=== PATIENT | female | born 1975 | race Caucasian/White ===

== ENCOUNTER → 2020-12-06 | Outpatient (CLI) | payer OTHER ==
--- NOTE | 2020-12-06 15:56 | CARD ---
MR#: [id number] Date of Study: 12/06/2020 Ordering Physician: KORY ESTRADA, Referring Physician: KORY ESTRADA, Tech: Zoey Godoy APPROVED REPORT EXAM: Two-dimensional and M-mode echocardiogram with Doppler and color Doppler. Other Information Quality : GoodHR: 96bpm INDICATION CVA/TIA Echo Enhancing Agent Indication: Rule Out Septal Defect Agent/Amount Used: Agitated Saline 10mL 2D DIMENSIONS RVDd3.2 (2.9-3.5cm)Left Atrium(2D)3.0 (1.6-4.0cm) IVSd0.8 (0.7-1.1cm)Aortic Root(2D)3.2 (2.0-3.7cm) LVDd4.4 (3.9-5.9cm)LVOT Diameter2.1 (1.8-2.4cm) PWd0.8 (0.7-1.1cm)LVDs2.3 (2.5-4.0cm) LVEF(%)70.0 (>50%) Aortic Valve AoV Peak Marquis.119.8cm/sAoV VTI18.6cm AO Peak GR.5.7mmHgLVOT Peak Marquis.115.0cm/s LVOT VTI 19.89cmAO Mean GR.3mmHg Mitral Valve MV E Qndseqrt65.3cm/sMV DECEL [id number] MV A Zuslwmah54.5cm/sMV [id number] E/A Ratio1.0MVA (PHT)3.41cm2 TDI E/Lateral E'4.0E/Medial E'6.4 Pulmonary Valve PV Peak Xbmtzhgx25.0cm/sPV Peak Grad.4mmHg Tricuspid Valve TR P. Gngshghw216ay/sRAP [id number] TR Peak Gr.50stJhPXDL58snAv Pulmonary Vein S1 Pytmbvcc47.6cm/sD2 Habireov10.2cm/s PVa [id number] LEFT VENTRICLE The left ventricle is normal size. There is normal left ventricular wall thickness. The left ventricu lar systolic function is normal. The Ejection Fraction is 55-60%. There is normal LV segmental wall m otion. RIGHT VENTRICLE The right ventricle is normal size. There is normal right ventricular wall thickness. The right ventr icular systolic function is normal. ATRIA The left atrium size is normal. The right atrium size is normal. Bubble study appears positive. AORTIC VALVE The aortic valve is normal in structure and function. Doppler and Color Flow revealed no significant aortic regurgitation. There is no significant aortic valvular stenosis. Calculated aortic valve area is 3.37 cm2 with maximum pressure gradient of 6 mmHg and mean pressure gradient of 3 mmHg. MITRAL VALVE The mitral valve is normal in structure and function. There is no evidence of mitral valve prolapse. There is no mitral valve stenosis. Doppler and Color-flow revealed trace mitral regurgitation. TRICUSPID VALVE The tricuspid valve is normal in structure and function. Doppler and Color Flow revealed trace to mil d tricuspid regurgitation with an estimated PAP of 23 mmHg. There is no tricuspid valve stenosis. PULMONIC VALVE The pulmonic valve is not well visualized. Doppler and Color Flow revealed no pulmonic valvular regur gitation. GREAT VESSELS The aortic root is normal in size. The IVC is normal in size and collapses >50% with inspiration. PERICARDIAL EFFUSION There is no evidence of significant pericardial effusion. Critical Notification Critical Value: No <Conclusion> The left ventricular systolic function is normal. The Ejection Fraction is 55-60%. There is normal LV segmental wall motion. Trace mitral regurgitation. Trace to mild tricuspid regurgitation with an estimated PAP of 23 mmHg. There is no evidence of significant pericardial effusion. Bubble study positive for PFO/ASD. Signed by : Markell Evans, Electronically Approved : 12/06/2020 15:55:36
== END ==
LOC: ECHO 07:59 → EDUNIT# 08:00
PROVIDERS: ATTEND Internal Medicine
DX: I07.1 Rheumatic tricuspid insufficiency (principal); G81.92 Hemiplegia, unspecified affecting left dominant side; R53.1 Weakness
CPT/HCPCS: 93306